=== PATIENT | female | born 1950 | race Caucasian/White ===

== ENCOUNTER → 2024-11-21 14:12 | Outpatient (REF) | payer MEDICARE, OTHER, SELFPAY | LOC: WDC 14:12 | PROVIDERS: ATTENDING PHYSICIAN Obstetrics & Gynecology Gynecology | DX: Z12.31 Encounter for screening mammogram for malignant neoplasm of breast (principal) | CPT/HCPCS: 77063; 77067 ==

== ENCOUNTER → 2025-07-09 09:53 | Outpatient (REF) | payer MEDICARE, OTHER, SELFPAY | LOC: HWRAD 09:53 | PROVIDERS: ATTENDING PHYSICIAN Physician Assistant; FAMILY PHYSICIAN Physician Assistant Medical | DX: C05.2 Malignant neoplasm of uvula (principal); I65.29 Occlusion and stenosis of unspecified carotid artery; Y84.2 Radiological procedure and radiotherapy as the cause of abnormal reaction of the patient, or of later complication, without mention of misadventure at the time of the procedure; C02.9 Malignant neoplasm of tongue, unspecified; T66.XXXA Radiation sickness, unspecified, initial encounter; I65.23 Occlusion and stenosis of bilateral carotid arteries | CPT/HCPCS: 93880 ==